=== PATIENT | female | born 1985 | race African-American/Black ===

== ENCOUNTER 2025-04-13 03:38 | Emergency (ER) | payer OTHER ==
[~2025-04-13] VITALS: Ht 167.6 cm; Wt 100.0 kg
[2025-04-13 03:45] VITALS: O2SAT 100
[2025-04-13] MEDS: KETOROLAC 15MG/ML VIAL IV ONE (04:47)
[2025-04-13] MEDS: TETANUS, DIPHTHERIA, PERTUSSIS VAC/PF 0.5ML (>10YR OLD) IM ONE (04:47)
[2025-04-13] MEDS: BACITRACIN ZINC OINT UDPKT TOP ONE (04:48)
[2025-04-13 05:03] LABS: BASOPHILS % 0.2 % (0.0-2.0); EOSINOPHILS % 0.2 % (0.0-5.0); HEMATOCRIT. 35.9 % (36.0-48.0); HEMOGLOBIN. 11.9 g/dL (12.0-16.0); LYMPHOCYTES % 12.3 % (20.0-50.0); MEAN PLATELET VOLUME 7.9 fl (7.4-10.4); MONOCYTES % 5.9 % (2.0-8.0); NEUTROPHILS % 81.4 % (40.0-76.0); PLATELET 347 x1000/uL (130-400); RED BLOOD CELL COUNT 4.15 mill/uL (4.2-5.4); RED CELL DISTRIBUTION WIDTH 14.0 % (11.6-14.6)
[2025-04-13 05:14] LABS: CREATININE 0.8 mg/dL (0.6-1.0); UREA NITROGEN BLOOD 6 mg/dL (9-23)
[2025-04-13] MEDS ORDERED: IBUP-1455 MT (05:59)
[2025-04-13] MEDS ORDERED: BO1 TP (05:59)
[2025-04-13] MEDS ORDERED: IOHEXOL-300 100 ML BOTTLE ONE (06:19)
[2025-04-13 07:04] VITALS: BP 131/66; PULSE 82; RESP 18; TEMP 36.6; O2SAT 100
== END 2025-04-13 07:04 | disposition home or self-care (01) ==
LOC: ER 03:38
DX: S09.90XA Unspecified injury of head, initial encounter (principal); R10.30 Lower abdominal pain, unspecified; V49.9XXA Car occupant (driver) (passenger) injured in unspecified traffic accident, initial encounter; Y93.89 Activity, other specified; Y92.410 Unspecified street and highway as the place of occurrence of the external cause; Y99.8 Other external cause status
CPT/HCPCS: 99285; 71260; 96374; 80048; 81025; 85025; 36415; 74177; 90715; 90471; J1885; Q9967